=== PATIENT | male | born 1985 | race Hispanic/Latino ===

== ENCOUNTER 2018-05-24 00:16 | Emergency (ER) | payer SELFPAY ==
[2018-05-24 00:50] LABS: BASOPHILS % (AUTO) 0.5 % (0.0-5.0); EOSINOPHILS % (AUTO) 3.7 % (0.0-8.0); LYMPHOCYTES % (AUTO) 27.6 % (21.0-51.0); MEAN CORPUSCULAR HEMOGLOBIN 31.5 pg (27.0-33.0); MEAN CORPUSCULAR HGB CONC 34.4 g/dL (32.0-36.0); MEAN CORPUSCULAR VOLUME 91.7 fL (79-99); MONOCYTES % (AUTO) 6.5 % (3.0-13.0); NEUTROPHILS % (AUTO) 61.7 % (40.0-77.0); NUCLEATED RED BLOOD CELLS 0.1 % (0.0-0.19); PLATELET COUNT (AUTO) 202 K/uL (130-400); RED BLOOD CELL COUNT(AUTO) 4.58 MIL/uL (4.50-6.20); RED CELL DISTRIBUTION WIDTH 13.2 % (11.0-15.5)
[2018-05-24 00:59] LABS: CARBON DIOXIDE 31 mmol/L (21-32); CHLORIDE 104 mmol/L (101-111); CREATININE 0.9 mg/dL (0.5-1.5); GLOMERULAR FILTR. RATE CALC 103 mL/min (>60); GLUCOSE,RANDOM 108 mg/dL (70-105); POTASSIUM 3.8 mmol/L (3.5-5.1); SODIUM SERUM 139 mmol/L (136-145); UREA NITROGEN, BLOOD 13 mg/dL (7-18)
[2018-05-24 01:03] LABS: ALANINE AMINOTRANSFERASE 27 U/L (12-78); ALBUMIN 3.8 g/dL (3.5-5.0); ASPARTATE AMINOTRANSFERASE 19 U/L (10-37); BILIRUBIN,DIRECT < 0.1 mg/dL (0.0-0.3); BILIRUBIN,TOTAL 0.1 mg/dL (0.2-1.0); LIPASE 135 U/L (114-286); TOTAL PROTEIN, SERUM 6.9 g/dL (6.0-8.3)
[2018-05-24] MEDS ORDERED: KETOROLAC TROMETHAMINE 30MG/ML ONE (01:15)
[2018-05-24] MEDS ORDERED: ONDANSETRON HCL 4 MG/2 ML VIAL ONE (01:15)
[2018-05-24 03:17] LABS: APPEARANCE,URINE Clear (CLEAR); BILIRUBIN,URINE Negative (NEGATIVE); COLOR,URINE Yellow (YELLOW); GLUCOSE, URINE (UA) Negative (NEGATIVE); KETONES,URINE Negative (NEGATIVE); LEUKOCYTE ESTERASE ,URINE Negative (NEGATIVE); NITRATE,URINE Negative (NEGATIVE); OCCULT BLOOD,URINE Negative (NEGATIVE); PH,URINE 6.5 (5.0-8.0); PROTEIN,URINE Negative (NEGATIVE); UROBILINOGEN,URINE 0.2 mg/dL (0.2-1.0)
[2018-05-24 03:27] LABS: AMPHET/METH SCREEN,URINE NEGATIVE (NEGATIVE); BARBITURATE SCREEN, URINE NEGATIVE (NEGATIVE); BENZODIAZEPINES SCREEN,URINE POSITIVE (NEGATIVE); CANNABINOID SCREEN,URINE POSITIVE (NEGATIVE); COCAINE SCREEN,URINE NEGATIVE (NEGATIVE); OPIATE SCREEN,URINE NEGATIVE (NEGATIVE); PHENCYCLIDINE SCREEN,URINE NEGATIVE (NEGATIVE)
== END 2018-05-24 03:07 | disposition home or self-care (01) ==
LOC: EDH 00:16
DX: K80.50 Calculus of bile duct without cholangitis or cholecystitis without obstruction (principal)
CPT/HCPCS: 36415; 76705; 80048; 80076; 80305; 81003; 83690; 85025; 96374; 96375; 99285; J1885; J2405

== ENCOUNTER 2020-03-29 15:40 | Inpatient (IN) | payer OTHER ==
[~2020-03-29] VITALS: Ht 182.9 cm; Wt 86.2 kg
[2020-03-29 16:32] LABS: BASOPHILS % (AUTO) 0.5 % (0.0-5.0); EOSINOPHILS % (AUTO) 1.1 % (0.0-8.0); HEMATOCRIT 46.6 % (42-54); LYMPHOCYTES % (AUTO) 11.4 % (21.0-51.0); MEAN CORPUSCULAR HGB CONC 34.5 g/dL (32.0-36.0); MEAN CORPUSCULAR VOLUME 89.8 fL (79-99); MONOCYTES % (AUTO) 8.1 % (3.0-13.0); NEUTROPHILS % (AUTO) 78.6 % (40.0-77.0); PLATELET COUNT (AUTO) 234 K/uL (130-400); RED BLOOD CELL COUNT(AUTO) 5.19 MIL/uL (4.50-6.20); RED CELL DISTRIBUTION WIDTH 12.5 % (11.0-15.5); WHITE BLOOD COUNT (AUTO) 11.6 K/uL (4.8-10.8)
[2020-03-29] MEDS ORDERED: ONDANSETRON HCL 4 MG/2 ML VIAL ONE (16:34)
[2020-03-29] MEDS ORDERED: SODIUM CHLORIDE 0.9% 1000ML 1,000 ML IV ONE (16:34)
[2020-03-29] MEDS ORDERED: KETOROLAC TROMETHAMINE 30MG/ML ONE (16:35)
[2020-03-29 16:42] LABS: APPEARANCE,URINE Cloudy (CLEAR); BILIRUBIN,URINE Negative (NEGATIVE); COLOR,URINE Yellow (YELLOW); GLUCOSE, URINE (UA) Negative (NEGATIVE); KETONES,URINE 40 mg/dL (NEGATIVE); LEUKOCYTE ESTERASE ,URINE Negative (NEGATIVE); NITRATE,URINE Negative (NEGATIVE); OCCULT BLOOD,URINE Trace (NEGATIVE); PH,URINE 7.5 (5.0-8.0); PROTEIN,URINE POS 1+ mg/dL (NEGATIVE)
[2020-03-29 16:43] LABS: CREATININE 0.9 mg/dL (0.5-1.5); POTASSIUM 3.6 mmol/L (3.5-5.1)
[2020-03-29 16:48] LABS: ALBUMIN 4.4 g/dL (3.5-5.0); BILIRUBIN,DIRECT 0.1 mg/dL (0.0-0.3); BILIRUBIN,TOTAL 0.7 mg/dL (0.2-1.0); TOTAL PROTEIN, SERUM 8.4 g/dL (6.0-8.3)
[2020-03-29 16:51] LABS: AMPHET/METH SCREEN,URINE NEGATIVE (NEGATIVE); BARBITURATE SCREEN, URINE NEGATIVE (NEGATIVE); BENZODIAZEPINES SCREEN,URINE NEGATIVE (NEGATIVE); CANNABINOID SCREEN,URINE POSITIVE (NEGATIVE); COCAINE SCREEN,URINE NEGATIVE (NEGATIVE); OPIATE SCREEN,URINE NEGATIVE (NEGATIVE); PHENCYCLIDINE SCREEN,URINE NEGATIVE (NEGATIVE)
[2020-03-29 17:17] LABS: BACTERIA,URINE Few /HPF (None Seen); MUCUS,URINE Rare LPF (None Seen); SQUAMOUS EPITHELIAL CELL,UR 0-2 /HPF (0-2)
[2020-03-29 17:22] LABS: OTHER CRYSTALS,URINE CALCIUM CARBONATE 1+ /LPF (None Seen)
[2020-03-29] MEDS ORDERED: SODIUM CHLORIDE 0.9% 100 ML IV ONE (18:49)
[2020-03-29] MEDS ORDERED: CEFTRIAXONE SODIUM 2 GM VIAL ONE (18:49)
[2020-03-29] MEDS ORDERED: ZOLPIDEM TARTRATE 5 MG TAB PO PRN (20:15)
[2020-03-29] MEDS ORDERED: ACETAMINOPHEN 325 MG TAB PO PRN ×2 (20:15)
[2020-03-29] MEDS ORDERED: ONDANSETRON HCL 4 MG/2 ML VIAL IV PRN (20:15)
[2020-03-29] MEDS ORDERED: MEPERIDINE-PF 25 MG/ML SYG IV PRN (20:15)
[2020-03-29] MEDS ORDERED: HYDRALAZINE HCL 20 MG/ML VIAL IV PRN (20:15)
[2020-03-29] MEDS ORDERED: LACTULOSE 20 GM/30 ML UDCUP ONE (20:34)
[2020-03-29] MEDS ORDERED: LORAZEPAM 0.5 MG TABLET ONE (22:40)
[2020-03-29] MEDS ORDERED: ZOSYN 3.375GM+NS 50ML 50 ML IV ONE (22:40)
[2020-03-30] VITALS (28 sets, daily range): BP systolic 102–145; BP diastolic 56–77
[2020-03-30] MEDS ORDERED: LORA2DIS6 IJ (02:06)
[2020-03-30] MEDS ORDERED: DICY20 PO (02:06)
[2020-03-30] MEDS ORDERED: CIPR500S5 PO (02:06)
[2020-03-30] MEDS ORDERED: KETOROLAC TROMETHAMINE 30MG/ML ONE (02:53)
[2020-03-30] MEDS ORDERED: KETOROLAC TROMETHAMINE 30MG/ML IV PRN (03:00)
[2020-03-30 05:47] LABS: BASOPHILS % (AUTO) 0.5 % (0.0-5.0); EOSINOPHILS % (AUTO) 1.5 % (0.0-8.0); HEMATOCRIT 39.8 % (42-54); LYMPHOCYTES % (AUTO) 16.7 % (21.0-51.0); MEAN CORPUSCULAR HEMOGLOBIN 30.8 pg (27.0-33.0); MEAN CORPUSCULAR HGB CONC 33.4 g/dL (32.0-36.0); MEAN CORPUSCULAR VOLUME 92.1 fL (79-99); NEUTROPHILS % (AUTO) 71.9 % (40.0-77.0); PLATELET COUNT (AUTO) 210 K/uL (130-400); RED BLOOD CELL COUNT(AUTO) 4.32 MIL/uL (4.50-6.20); RED CELL DISTRIBUTION WIDTH 12.6 % (11.0-15.5); WHITE BLOOD COUNT (AUTO) 10.2 K/uL (4.8-10.8)
[2020-03-30 06:26] LABS: ALANINE AMINOTRANSFERASE 24 U/L (12-78); ALBUMIN 3.5 g/dL (3.5-5.0); ASPARTATE AMINOTRANSFERASE 16 U/L (10-37); BILIRUBIN,TOTAL 0.6 mg/dL (0.2-1.0); CARBON DIOXIDE 26 mmol/L (21-32); CHLORIDE 105 mmol/L (101-111); CREATININE 0.9 mg/dL (0.5-1.5); GLOMERULAR FILTR. RATE CALC 101 mL/min (>60); GLUCOSE,RANDOM 81 mg/dL (70-105); POTASSIUM 3.5 mmol/L (3.5-5.1); SODIUM SERUM 140 mmol/L (136-145); TOTAL PROTEIN, SERUM 6.8 g/dL (6.0-8.3); UREA NITROGEN, BLOOD 13 mg/dL (7-18)
[2020-03-30] MEDS: SODIUM CHLORIDE 0.9% 1000ML 1,000 ML IV SCH (06:54)
[2020-03-30] MEDS: ZOSYN 3.375GM+NS 50ML 50 ML IV SCH ×3 (06:59→20:13)
[2020-03-30] MEDS: FAMOTIDINE/PF 20 MG/2 ML VIAL IV SCH ×3 (08:13→20:13)
[2020-03-30] MEDS ORDERED: MIDAZOLAM HCL 1 MG/ML 2ML VIAL ONE ×2 (12:55→14:01)
[2020-03-30] MEDS ORDERED: DEXAMETHASONE SOD PHOSPHATE 10MG/ML 1ML VIAL ONE (12:55)
[2020-03-30] MEDS ORDERED: LIDOCAINE PF 2% 5ML ABBOJECT ONE (12:55)
[2020-03-30] MEDS ORDERED: ONDANSETRON HCL 4 MG/2 ML VIAL ONE (12:55)
[2020-03-30] MEDS ORDERED: PROPOFOL 10 MG/ML 20ML VIAL IV ONE (12:55)
[2020-03-30] MEDS ORDERED: GLYCOPYRROLATE 1 MG/5 ML SYRINGE ONE (12:56)
[2020-03-30] MEDS ORDERED: FENTANYL CITRATE PF 50 MCG/1 ML 2ML VIAL ONE (12:56)
[2020-03-30] MEDS ORDERED: ROCURONIUM 10MG/1ML SYR 10 MG/ML ML ONE (12:57)
[2020-03-30] MEDS ORDERED: NEOSTIGMINE 5MG/5ML SYR IV ONE (12:57)
[2020-03-30] MEDS ORDERED: BUPIVACAINE/PF 0.25% 30ML VIAL IJ ONE (13:50)
--- NOTE | 2020-03-30 15:37 | NUR ---
[facility] CM spoke to pt's spouse Laura Lawson [phone] discussed dc plans. Pt is independent prior to admission, lives at home with spouse and parents in law. Pt has a walker and cane, uses [facility] for meds. Verbalized they have 3 steps in front door. Denies any other equipments/services. Feels safe to go back home, still drives and works, spouse able to assist with transportation and needs as necessary. DC plan to home once stable. CM to cont to follow up. Addendum: 03/30/20 at 1539 by TERESA BARNETT LVN CM Amended: Links added.
--- NOTE | 2020-03-30 19:20 | NUR ---
1920 ,REPORT GIVEN TO RN AT SHIFT CHANGE, PT STABLE NO DISTRESS. PT RESTING IN BED, ADDRESS PT PAIN STATUS, REASSESSED PT STATED HE FELT BETTER, ONLY DISCOMFORT, STATED REFEREED PAIN TO BERNABE. UPPER SHOULDERS AND CHEST, EXPLAINED PAIN IS REFERRED AND IS COMMON S/P PROCEDURE, TRAPPED AIR IN ABDOMEN.
[2020-03-30] MEDS: LACTULOSE 20 GM/30 ML UDCUP PO SCH ×2 (20:13→20:23)
--- NOTE | 2020-03-30 20:30 | NUR ---
SPOKE WITH DOCTOR HODGES ABOUT PATIENT'S TACHYCARDIA AND CHEST PAIN. HE ORDERED NITRO-BID 0.5 INCH ON CHEST WALL EVERY 8 HOURS, ATIVAN 1 MG PRN BID, STAT EKG, AND CARDIAC PANEL X 3.
[2020-03-30] MEDS ORDERED: NITROGLYCERIN 1GM/1 INCH PACKET TD ONE (20:41)
[2020-03-30] MEDS ORDERED: LORAZEPAM 1 MG TABLET ONE (20:41)
[2020-03-30] MEDS: NITROGLYCERIN 1GM/1 INCH PACKET TD SCH (20:45)
[2020-03-30] MEDS ORDERED: LORAZEPAM 1 MG TABLET PO PRN (20:45)
[2020-03-30 21:48] LABS: CREATINE KINASE, TOTAL 97 U/L (21-232); MYOGLOBIN 95 ng/mL (10-92); TROPONIN I < 0.04 ng/mL (0.00-0.06)
--- NOTE | 2020-03-30 22:00 | NUR ---
LET DOCTOR CARROLL KNOW ABOUT EKG RESULTS OF NORMAL SINUS AND ABNORMAL ARHYTHMIA. HE IS AWARE.
[2020-03-31 00:29] VITALS: BP 130/74
[2020-03-31] MEDS: ACETAMINOPHEN-CODEINE 300/30MG TAB PO PRN ×2 (01:41→09:54)
[2020-03-31] MEDS: SODIUM CHLORIDE 0.9% 1000ML 1,000 ML IV SCH ×2 (01:45→14:23)
[2020-03-31] MEDS: ZOSYN 3.375GM+NS 50ML 50 ML IV SCH ×2 (03:50→14:12)
[2020-03-31] MEDS: NITROGLYCERIN 1GM/1 INCH PACKET TD SCH ×2 (03:50→12:45)
[2020-03-31 06:20] VITALS: BP 125/66
[2020-03-31 07:56] LABS: BASOPHILS % (AUTO) 0.1 % (0.0-5.0); HEMATOCRIT 39.3 % (42-54); LYMPHOCYTES % (AUTO) 4.5 % (21.0-51.0); MEAN CORPUSCULAR HGB CONC 34.1 g/dL (32.0-36.0); MONOCYTES % (AUTO) 5.4 % (3.0-13.0); NEUTROPHILS % (AUTO) 89.4 % (40.0-77.0); PLATELET COUNT (AUTO) 210 K/uL (130-400); RED BLOOD CELL COUNT(AUTO) 4.32 MIL/uL (4.50-6.20); RED CELL DISTRIBUTION WIDTH 12.3 % (11.0-15.5)
[2020-03-31 08:07] VITALS: BP 125/69
[2020-03-31 08:21] LABS: CARBON DIOXIDE 24 mmol/L (21-32); CHLORIDE 105 mmol/L (101-111); CREATINE KINASE, TOTAL 73 U/L (21-232); CREATININE 0.9 mg/dL (0.5-1.5); GLOMERULAR FILTR. RATE CALC 101 mL/min (>60); GLUCOSE,RANDOM 124 mg/dL (70-105); MYOGLOBIN 56 ng/mL (10-92); POTASSIUM 3.9 mmol/L (3.5-5.1); SODIUM SERUM 139 mmol/L (136-145); TROPONIN I < 0.04 ng/mL (0.00-0.06); UREA NITROGEN, BLOOD 10 mg/dL (7-18)
[2020-03-31] MEDS: FAMOTIDINE/PF 20 MG/2 ML VIAL IV SCH (09:52)
[2020-03-31 12:30] VITALS: BP 107/71
[2020-03-31 13:45] LABS: CREATINE KINASE, TOTAL 60 U/L (21-232); MYOGLOBIN 26 ng/mL (10-92); TROPONIN I < 0.04 ng/mL (0.00-0.06)
[2020-03-31 17:51] VITALS: BP 120/73
[2020-03-31 19:14] LABS: CREATINE KINASE, TOTAL 60 U/L (21-232); MYOGLOBIN 49 ng/mL (10-92); TROPONIN I < 0.04 ng/mL (0.00-0.06)
[2020-03-31] MEDS ORDERED: ACET1TAB12 PO (19:22)
== END 2020-03-31 20:58 | disposition home or self-care (01) | DRG 419 ==
LOC: EDH 15:40 → EDHIP 15:41 → 3CH 03-30 01:17
PROVIDERS: ADMIT Internal Medicine; ATTEND Internal Medicine
PROC: 0FT44ZZ Resection of Gallbladder, Percutaneous Endoscopic Approach (ICD-10-PCS; principal; 2020-03-30 13:13)
DX: K80.00 Calculus of gallbladder with acute cholecystitis without obstruction (principal); K57.30 Diverticulosis of large intestine without perforation or abscess without bleeding; K59.00 Constipation, unspecified; K82.8 Other specified diseases of gallbladder; F41.9 Anxiety disorder, unspecified
CPT/HCPCS: 36415; 74176; 76705; 80048; 80053; 80076; 80305; 81001; 82550; 83690; 83874; 84145; 84484; 85025; 88304; 93005; G0378; J0696; J1100; J1885; J2001; J2175; J2250; J2405; J2543; J2704; J2710; J3010; J3490; J7030